=== PATIENT | male | born 1955 | race Caucasian/White ===

== ENCOUNTER 2017-07-01 00:33 | Inpatient (IN) | payer OTHER ==
[2017-07-01] MEDS: CEFEPIME 2GM/50 ML (PMX) 50 ML IVPB (03:34)
[2017-07-01] MEDS: morphine 4 MG/ML VIAL IV ×5 (03:34→21:21)
[2017-07-01] MEDS: ONDANSETRON 4 MG INJ IV ×2 (03:34→10:25)
[2017-07-01] MEDS: SODIUM CHLORIDE 0.9% 1L BAG IV* (03:34)
[2017-07-01 03:41] LABS: ADD MAN DIFF? NO
[2017-07-01 03:57] LABS: ADD UMIC NO; UR ASCORBIC ACID NEGATIVE (NEGATIVE); UR BILIRUBIN (Dip) NEGATIVE (NEGATIVE); UR BLOOD (Dip) NEGATIVE (NEGATIVE); UR CLARITY CLEAR (CLEAR); UR COLOR YELLOW (YELLOW); UR GLUCOSE (Dip) NEGATIVE (NEGATIVE); UR KETONES (Dip) NEGATIVE (NEGATIVE); UR LEUKOCYTE ESTERASE (Dip) NEGATIVE Leu/ul (NEGATIVE); UR NITRITE (Dip) NEGATIVE (NEGATIVE); UR SPECIFIC GRAVITY (Dip) 1.023 (1.003-1.030); UR TOTAL PROTEIN (Dip) NEGATIVE (NEGATIVE); UR UROBILINOGEN (Dip) NEGATIVE (NEGATIVE)
[2017-07-01 03:59] LABS: ALANINE AMINOTRANSFERASE 29 IU/L (13-69); ALBUMIN 4.2 g/dl (3.3-4.9); ALKALINE PHOSPHATASE 76 IU/L (42-121); ANION GAP 16 (8-16); ASPARTATE AMINO TRANSFERASE 21 IU/L (15-46); BILIRUBIN,INDIRECT 0.3 mg/dl (0-1.1); BILIRUBIN,TOTAL 0.3 mg/dl (0.2-1.3); BLOOD UREA NITROGEN 15 mg/dl (7-20); CALCIUM 9.2 mg/dl (8.4-10.2); CARBON DIOXIDE 22 mmol/L (21-31); CHLORIDE 103 mmol/L (97-110); CREATININE 0.94 mg/dl (0.61-1.24); GLUCOSE 139 mg/dl (70-220); LIPASE 93 U/L (23-300); POTASSIUM 4.3 mmol/L (3.5-5.1); SODIUM 137 mmol/L (135-144)
[2017-07-01 04:05] LABS: PARTIAL THROMBOPLASTIN TIME 30.7 Sec (25.0-35.0)
[2017-07-01 04:07] LABS: WHITE BLOOD COUNT 17.8 10^3/ul (4.8-10.8)
[2017-07-01 04:07] LABS: ABNORMAL IP MESSAGE 1; BASOPHILS % 0.2 % (0.0-2.0); HEMATOCRIT 43.4 % (42.0-52.0); HEMOGLOBIN 15.2 g/dl (14.0-18.0); LYMPHOCYTES # 1.1 10^3/ul (0.8-2.9); LYMPHOCYTES % 6.1 % (15.0-51.0); MEAN CORPUSCULAR VOLUME 91.4 fl (82.0-101.0); MEAN PLATELET VOLUME 12.9 fl (7.4-10.4); MONOCYTE # 1.9 10^3/ul (0.3-0.9); MONOCYTES % 10.5 % (0.0-11.0); NEUTROPHIL # 14.7 10^3/ul (1.6-7.5); NEUTROPHILS % 82.8 % (39.0-77.0); PLATELET COUNT 160 10^3/UL (140-415); POSITIVE DIFF @See below; RED BLOOD COUNT 4.75 10^6/ul (4.70-6.10); RED CELL DISTRIBUTION WIDTH 13.3 % (11.5-14.5)
[2017-07-01 04:09] LABS: INR 0.97
[2017-07-01 04:14] LABS: TROPONIN-I < 0.012 ng/ml (0.00-0.12)
[2017-07-01 04:16] LABS: LACTIC ACID 2.1 mmol/L (0.5-2.0)
[2017-07-01] MEDS: VANCOMYCIN 1 GM (PMX) 250 ML IVPB ×2 (04:35→18:31)
[2017-07-01] MEDS: morphine 10 MG INJ IV (05:58)
[2017-07-01 08:40] LABS: INR 1.08; PARTIAL THROMBOPLASTIN TIME 31.9 Sec (25.0-35.0); PROTIME 14.1 Sec (11.9-14.9); PT RATIO 1.1
[2017-07-01 09:05] LABS: LACTIC ACID 1.8 mmol/L (0.5-2.0)
[2017-07-01] MEDS ORDERED: ACETAMINOPHEN 325 MG TAB PO ×2 (10:30→13:30)
[2017-07-01] MEDS ORDERED: ONDANSETRON 4 MG INJ IV ×2 (10:30→13:30)
[2017-07-01] MEDS: SOD CHLORIDE 0.9% 1,000 ML IV ×2 (10:46→13:26)
[2017-07-01] MEDS ORDERED: HYDROCODONE/APAP (5/325) TAB PO ×2 (13:30)
[2017-07-01] MEDS ORDERED: ACETAMINOPHEN 650 MG SUPP PR (13:30)
[2017-07-01] MEDS ORDERED: VANCOMYCIN IV PER PHARMACY XX (13:30)
[2017-07-01] MEDS ORDERED: NACL 0.9% 3 ML SYG IV (13:30)
[2017-07-01] MEDS ORDERED: DOCUSATE SODIUM 100 MG CAP PO (13:30)
[2017-07-01] MEDS ORDERED: GLUCOSE GEL 15 GRAM TUBE BUCCAL (14:00)
[2017-07-01] MEDS ORDERED: GLUCAGON 1 MG INJ IM (14:00)
[2017-07-01] MEDS ORDERED: GLUCOSE GEL 15 GRAM TUBE PO ×2 (14:00)
[2017-07-01] MEDS ORDERED: DEXTROSE 50% 50 ML SYRINGE IV ×2 (14:00)
[2017-07-01 14:58] LABS: LACTIC ACID 1.1 mmol/L (0.5-2.0)
[2017-07-01] MEDS: PIPER-TAZO 3.375 GM IV (PMX) 50 ML IVPB (17:55)
[2017-07-01] MEDS: INSULIN ASPART [NOVOLOG] 3 ML PEN SC ×2 (18:05→20:08)
[2017-07-01] MEDS: ATORVASTATIN 20 MG TAB PO (20:08)
[2017-07-02] MEDS: PIPER-TAZO 3.375 GM IV (PMX) 50 ML IVPB ×5 (00:21→23:42)
[2017-07-02] MEDS: SOD CHLORIDE 0.9% 1,000 ML IV ×3 (01:56→23:43)
[2017-07-02] MEDS: ACCU-CHEK XX (02:33)
[2017-07-02] MEDS ORDERED: PANTOPRAZOLE 40 MG INJ (04:49)
[2017-07-02] MEDS: PANTOPRAZOLE 40 MG INJ IV (05:26)
[2017-07-02] MEDS: morphine 4 MG/ML VIAL IV ×6 (05:27→23:02)
[2017-07-02 06:10] LABS: ADD MAN DIFF? NO
[2017-07-02] MEDS: VANCOMYCIN 1 GM (PMX) 250 ML IVPB (06:11)
[2017-07-02 06:15] LABS: ABNORMAL IP MESSAGE 1; BASOPHILS % 0.3 % (0.0-2.0); EOSINOPHILS # 0.1 10^3/ul (0.0-0.5); EOSINOPHILS % 0.5 % (0.0-7.0); HEMATOCRIT 38.6 % (42.0-52.0); HEMOGLOBIN 13.4 g/dl (14.0-18.0); LYMPHOCYTES # 1.2 10^3/ul (0.8-2.9); LYMPHOCYTES % 7.5 % (15.0-51.0); MEAN CORPUSCULAR HEMOGLOBIN 32.3 pg (29.0-33.0); MEAN CORPUSCULAR HGB CONC 34.7 g/dl (32.0-37.0); MEAN PLATELET VOLUME 12.1 fl (7.4-10.4); MONOCYTE # 1.7 10^3/ul (0.3-0.9); MONOCYTES % 10.8 % (0.0-11.0); NEUTROPHIL # 12.8 10^3/ul (1.6-7.5); NEUTROPHILS % 80.3 % (39.0-77.0); PLATELET COUNT 132 10^3/UL (140-415); POSITIVE DIFF @See below; RED BLOOD COUNT 4.15 10^6/ul (4.70-6.10); RED CELL DISTRIBUTION WIDTH 13.2 % (11.5-14.5)
[2017-07-02 06:15] LABS: WHITE BLOOD COUNT 15.9 10^3/ul (4.8-10.8)
[2017-07-02 07:02] LABS: ALANINE AMINOTRANSFERASE 25 IU/L (13-69); ALBUMIN 2.9 g/dl (3.3-4.9); ALBUMIN/GLOBULIN RATIO 1.03; ALKALINE PHOSPHATASE 54 IU/L (42-121); ANION GAP 12 (8-16); ASPARTATE AMINO TRANSFERASE 13 IU/L (15-46); BILIRUBIN,INDIRECT 0.8 mg/dl (0-1.1); BILIRUBIN,TOTAL 0.8 mg/dl (0.2-1.3); BLOOD UREA NITROGEN 11 mg/dl (7-20); CALCIUM 8.5 mg/dl (8.4-10.2); CARBON DIOXIDE 25 mmol/L (21-31); CHLORIDE 104 mmol/L (97-110); CHOLESTEROL 127 mg/dl (100-200); CREATININE 0.84 mg/dl (0.61-1.24); GLUCOSE 110 mg/dl (70-220); HDL CHOLESTEROL 31 mg/dl (30-78); LDL CHOLESTEROL,CALCULATED 75 mg/dl; MAGNESIUM 1.8 mg/dl (1.7-2.5); SODIUM 137 mmol/L (135-144); TOTAL PROTEIN 5.7 g/dl (6.1-8.1); TRIGLYCERIDES 105 mg/dl (0-149)
[2017-07-02 07:16] LABS: FREE THYROXINE INDEX (Calc) 2.61 ug/ml (0.65-3.89); T3 UPTAKE 39.5 % (23.5-40.5); T4 (THYROXINE) 6.6 ug/dl (5.5-11.0)
[2017-07-02 07:29] LABS: THYROID STIMULATING HORMONE 0.499 MIU/L (0.465-4.680)
[2017-07-02] MEDS: INSULIN ASPART [NOVOLOG] 3 ML PEN SC ×4 (08:00→20:12)
[2017-07-02] MEDS: CHOLECALCIFEROL 1,000 UNIT TAB PO (08:59)
[2017-07-02 09:44] LABS: HEMOGLOBIN A1C 5.9 % (0-5.9)
[2017-07-02] MEDS ORDERED: VANCOMYCIN 1 GM in SOD CHLORIDE 0.45% 250 ML IVPB (18:00)
[2017-07-02] MEDS: VANCOMYCIN 1 GM in SODIUM CHLORIDE 0.45 % 250 ML IVPB (18:24)
[2017-07-02] MEDS: ATORVASTATIN 20 MG TAB PO (20:12)
[2017-07-03] MEDS: HYDROmorphONE 0.5 MG/0.5 ML SYG IV ×3 (01:11→09:35)
[2017-07-03] MEDS: ACCU-CHEK XX (02:00)
[2017-07-03] MEDS: PANTOPRAZOLE 40 MG INJ IV (05:30)
[2017-07-03] MEDS: PIPER-TAZO 3.375 GM IV (PMX) 50 ML IVPB ×3 (05:30→19:38)
[2017-07-03 06:30] LABS: ADD MAN DIFF? NO
[2017-07-03 06:37] LABS: WHITE BLOOD COUNT 11.6 10^3/ul (4.8-10.8)
[2017-07-03 06:37] LABS: BASOPHILS % 0.2 % (0.0-2.0); EOSINOPHILS # 0.2 10^3/ul (0.0-0.5); EOSINOPHILS % 1.4 % (0.0-7.0); HEMATOCRIT 37.8 % (42.0-52.0); HEMOGLOBIN 12.6 g/dl (14.0-18.0); LYMPHOCYTES # 1.3 10^3/ul (0.8-2.9); LYMPHOCYTES % 11.3 % (15.0-51.0); MEAN CORPUSCULAR HGB CONC 33.3 g/dl (32.0-37.0); MEAN CORPUSCULAR VOLUME 93.1 fl (82.0-101.0); MEAN PLATELET VOLUME 12.1 fl (7.4-10.4); MONOCYTES % 8.4 % (0.0-11.0); PLATELET COUNT 143 10^3/UL (140-415); RED BLOOD COUNT 4.06 10^6/ul (4.70-6.10); RED CELL DISTRIBUTION WIDTH 12.6 % (11.5-14.5)
[2017-07-03 07:41] LABS: VANCOMYCIN,TROUGH 8.3 ug/ml (10.0-20.0)
[2017-07-03] MEDS: INSULIN ASPART [NOVOLOG] 3 ML PEN SC ×4 (08:00→21:00)
[2017-07-03 08:35] LABS: ANION GAP 11 (8-16); BLOOD UREA NITROGEN 12 mg/dl (7-20); CARBON DIOXIDE 28 mmol/L (21-31); CHLORIDE 104 mmol/L (97-110); CREATININE 0.97 mg/dl (0.61-1.24); GLUCOSE 105 mg/dl (70-220); POTASSIUM 4.4 mmol/L (3.5-5.1); SODIUM 139 mmol/L (135-144)
[2017-07-03] MEDS: CHOLECALCIFEROL 1,000 UNIT TAB PO (09:00)
[2017-07-03] MEDS: VANCOMYCIN 1 GM in SODIUM CHLORIDE 0.45 % 250 ML IVPB (09:07)
[2017-07-03 09:26] LABS: MAGNESIUM 2.2 mg/dl (1.7-2.5)
[2017-07-03 09:26] LABS: PHOSPHORUS 3.1 mg/dl (2.5-4.9)
[2017-07-03] MEDS: SOD CHLORIDE 0.9% 500 ML (10:58)
[2017-07-03] MEDS: LIDOCAINE 1% (MDV) 20 ML INJ (11:30)
[2017-07-03] MEDS: MIDAZOLAM 1 MG/ML 2 ML INJ (11:31)
[2017-07-03] MEDS: FENTAnyl 50 MCG/ML VIAL (11:35)
[2017-07-03] MEDS: morphine 2 MG INJ IV ×2 (12:55→20:48)
[2017-07-03] MEDS: morphine 4 MG/ML VIAL IV ×3 (14:44→23:58)
[2017-07-03] MEDS: VANCOMYCIN 750 MG in DEXTROSE 5% 150 ML IVPB (17:04)
[2017-07-03] MEDS: SOD CHLORIDE 0.9% 1,000 ML IV (17:05)
[2017-07-03] MEDS: ATORVASTATIN 20 MG TAB PO (21:01)
[2017-07-04] MEDS: VANCOMYCIN 750 MG in DEXTROSE 5% 150 ML IVPB ×3 (00:07→15:02)
[2017-07-04] MEDS: PIPER-TAZO 3.375 GM IV (PMX) 50 ML IVPB ×4 (00:07→17:12)
[2017-07-04] MEDS: ACCU-CHEK XX (00:59)
[2017-07-04] MEDS: morphine 4 MG/ML VIAL IV ×6 (03:37→20:28)
[2017-07-04] MEDS: SOD CHLORIDE 0.9% 1,000 ML IV ×2 (03:56→15:02)
[2017-07-04] MEDS: PANTOPRAZOLE 40 MG INJ IV (05:27)
[2017-07-04 06:11] LABS: ADD MAN DIFF? NO
[2017-07-04 06:15] LABS: WHITE BLOOD COUNT 7.2 10^3/ul (4.8-10.8)
[2017-07-04 06:15] LABS: BASOPHILS % 0.3 % (0.0-2.0); EOSINOPHILS # 0.2 10^3/ul (0.0-0.5); EOSINOPHILS % 2.1 % (0.0-7.0); HEMATOCRIT 35.8 % (42.0-52.0); HEMOGLOBIN 12.6 g/dl (14.0-18.0); LYMPHOCYTES # 1.5 10^3/ul (0.8-2.9); LYMPHOCYTES % 21.2 % (15.0-51.0); MEAN CORPUSCULAR HEMOGLOBIN 32.2 pg (29.0-33.0); MEAN CORPUSCULAR HGB CONC 35.2 g/dl (32.0-37.0); MEAN CORPUSCULAR VOLUME 91.6 fl (82.0-101.0); MONOCYTE # 0.7 10^3/ul (0.3-0.9); MONOCYTES % 9.6 % (0.0-11.0); NEUTROPHIL # 4.8 10^3/ul (1.6-7.5); NEUTROPHILS % 66.2 % (39.0-77.0); PLATELET COUNT 168 10^3/UL (140-415); RED BLOOD COUNT 3.91 10^6/ul (4.70-6.10)
[2017-07-04 06:49] LABS: ANION GAP 13 (8-16); BLOOD UREA NITROGEN 13 mg/dl (7-20); CALCIUM 8.7 mg/dl (8.4-10.2); CARBON DIOXIDE 24 mmol/L (21-31); CHLORIDE 107 mmol/L (97-110); CREATININE 0.86 mg/dl (0.61-1.24); GLUCOSE 102 mg/dl (70-220); POTASSIUM 4.4 mmol/L (3.5-5.1); SODIUM 140 mmol/L (135-144)
[2017-07-04 06:59] LABS: MAGNESIUM 2.2 mg/dl (1.7-2.5)
[2017-07-04] MEDS: INSULIN ASPART [NOVOLOG] 3 ML PEN SC ×4 (08:00→20:38)
[2017-07-04] MEDS: CHOLECALCIFEROL 1,000 UNIT TAB PO (09:32)
[2017-07-04] MEDS: POLYETHYLENE GLYCOL 17 GM PACKET PO ×2 (12:20→20:33)
[2017-07-04] MEDS: BISACODYL (EC) 5 MG TAB PO (12:34)
[2017-07-04] MEDS: ATORVASTATIN 20 MG TAB PO (20:33)
[2017-07-05] MEDS: morphine 4 MG/ML VIAL IV ×7 (00:23→22:15)
[2017-07-05] MEDS: PIPER-TAZO 3.375 GM IV (PMX) 50 ML IVPB ×5 (00:23→23:54)
[2017-07-05] MEDS: ACCU-CHEK XX (01:12)
[2017-07-05] MEDS: VANCOMYCIN 1 GM 250 ML IVPB ×2 (03:21→15:45)
[2017-07-05] MEDS: SOD CHLORIDE 0.9% 1,000 ML IV ×2 (03:26→17:31)
[2017-07-05] MEDS: MAGNESIUM HYDROXIDE 30ML CUP PO (03:26)
[2017-07-05] MEDS: PANTOPRAZOLE 40 MG INJ IV (05:28)
[2017-07-05] MEDS: INSULIN ASPART [NOVOLOG] 3 ML PEN SC ×4 (08:00→20:09)
[2017-07-05] MEDS: CHOLECALCIFEROL 1,000 UNIT TAB PO (08:44)
[2017-07-05] MEDS: POLYETHYLENE GLYCOL 17 GM PACKET PO ×2 (08:44→20:09)
[2017-07-05] MEDS: ATORVASTATIN 20 MG TAB PO (20:09)
[2017-07-05] MEDS: BISACODYL 10 MG SUPP PR (22:21)
[2017-07-05 23:46] LABS: FLUID AMYLASE 3328 U/L; FLUID TYPE PERITONEAL FLUID
[2017-07-06] MEDS: ACCU-CHEK XX (02:00)
[2017-07-06] MEDS: morphine 4 MG/ML VIAL IV (02:02)
[2017-07-06] MEDS: VANCOMYCIN 1 GM 250 ML IVPB ×2 (03:05→15:41)
[2017-07-06] MEDS: HYDROmorphONE 0.5 MG/0.5 ML SYG IV ×4 (04:31→17:29)
[2017-07-06] MEDS: PANTOPRAZOLE 40 MG INJ IV (05:36)
[2017-07-06] MEDS: PIPER-TAZO 3.375 GM IV (PMX) 50 ML IVPB ×4 (05:36→23:47)
[2017-07-06 07:24] LABS: BLOOD UREA NITROGEN 13 mg/dl (7-20)
[2017-07-06 07:24] LABS: CREATININE 0.98 mg/dl (0.61-1.24)
[2017-07-06] MEDS: SOD CHLORIDE 0.9% 1,000 ML IV ×3 (07:30→18:03)
[2017-07-06] MEDS: INSULIN ASPART [NOVOLOG] 3 ML PEN SC ×4 (08:00→21:00)
[2017-07-06] MEDS: POLYETHYLENE GLYCOL 17 GM PACKET PO ×2 (08:32→21:00)
[2017-07-06] MEDS: CHOLECALCIFEROL 1,000 UNIT TAB PO (08:34)
[2017-07-06 14:42] LABS: AMYLASE 85 U/L (11-123)
[2017-07-06 14:49] LABS: VANCOMYCIN,TROUGH 12.4 ug/ml (10.0-20.0)
[2017-07-06] MEDS: ATORVASTATIN 20 MG TAB PO (21:32)
[2017-07-06] MEDS: LORAZEPAM 2 MG INJ IV (21:35)
[2017-07-07] MEDS: ACCU-CHEK XX (02:00)
[2017-07-07] MEDS: VANCOMYCIN 1 GM 250 ML IVPB ×2 (03:59→15:35)
[2017-07-07] MEDS: PANTOPRAZOLE 40 MG INJ IV (06:18)
[2017-07-07] MEDS: PIPER-TAZO 3.375 GM IV (PMX) 50 ML IVPB ×3 (06:19→18:09)
[2017-07-07] MEDS: INSULIN ASPART [NOVOLOG] 3 ML PEN SC ×4 (07:56→20:09)
[2017-07-07] MEDS: SOD CHLORIDE 0.9% 1,000 ML IV ×3 (07:56→19:26)
[2017-07-07] MEDS: CHOLECALCIFEROL 1,000 UNIT TAB PO (08:56)
[2017-07-07] MEDS: POLYETHYLENE GLYCOL 17 GM PACKET PO ×2 (08:57→20:10)
[2017-07-07] MEDS: HYDROmorphONE 0.5 MG/0.5 ML SYG IV ×3 (10:54→20:10)
[2017-07-07] MEDS: ATORVASTATIN 20 MG TAB PO (20:10)
[2017-07-08] MEDS: PIPER-TAZO 3.375 GM IV (PMX) 50 ML IVPB ×4 (00:15→17:09)
[2017-07-08] MEDS: HYDROmorphONE 0.5 MG/0.5 ML SYG IV ×5 (00:17→17:10)
[2017-07-08] MEDS: ACCU-CHEK XX (01:14)
[2017-07-08] MEDS: VANCOMYCIN 1 GM 250 ML IVPB ×2 (02:55→15:08)
[2017-07-08] MEDS: PANTOPRAZOLE 40 MG INJ IV (05:16)
[2017-07-08] MEDS: INSULIN ASPART [NOVOLOG] 3 ML PEN SC ×4 (08:00→20:08)
[2017-07-08] MEDS: CHOLECALCIFEROL 1,000 UNIT TAB PO (08:02)
[2017-07-08] MEDS: POLYETHYLENE GLYCOL 17 GM PACKET PO ×2 (08:04→20:09)
[2017-07-08] MEDS: SOD CHLORIDE 0.9% 1,000 ML IV ×2 (08:05→20:26)
[2017-07-08] MEDS: ATORVASTATIN 20 MG TAB PO (20:08)
[2017-07-08] MEDS: SOD CHLORIDE 0.9% 500 ML IV (20:11)
[2017-07-08] MEDS: ACETAMINOPHEN 1000 MG/100 ML IVPB IV (22:45)
[2017-07-09] MEDS: PIPER-TAZO 3.375 GM IV (PMX) 50 ML IVPB ×5 (00:07→23:43)
[2017-07-09] MEDS: ACCU-CHEK XX (01:09)
[2017-07-09] MEDS: VANCOMYCIN 1 GM 250 ML IVPB ×2 (03:09→15:18)
[2017-07-09] MEDS: PANTOPRAZOLE 40 MG INJ IV (05:27)
[2017-07-09] MEDS: SOD CHLORIDE 0.9% 1,000 ML IV ×3 (06:27→22:05)
[2017-07-09] MEDS: INSULIN ASPART [NOVOLOG] 3 ML PEN SC ×4 (08:00→20:08)
[2017-07-09] MEDS: HYDROmorphONE 0.5 MG/0.5 ML SYG IV ×3 (08:21→22:05)
[2017-07-09] MEDS: CHOLECALCIFEROL 1,000 UNIT TAB PO (08:21)
[2017-07-09] MEDS: POLYETHYLENE GLYCOL 17 GM PACKET PO ×2 (08:21→20:09)
[2017-07-09] MEDS: LORAZEPAM 1 MG TAB PO ×2 (11:52→20:15)
[2017-07-09 12:23] LABS: ADD MAN DIFF? NO
[2017-07-09 12:44] LABS: WHITE BLOOD COUNT 8.1 10^3/ul (4.8-10.8)
[2017-07-09 12:44] LABS: BASOPHILS % 0.5 % (0.0-2.0); EOSINOPHILS # 0.2 10^3/ul (0.0-0.5); HEMATOCRIT 39.9 % (42.0-52.0); HEMOGLOBIN 13.9 g/dl (14.0-18.0); LYMPHOCYTES # 1.6 10^3/ul (0.8-2.9); LYMPHOCYTES % 19.7 % (15.0-51.0); MEAN CORPUSCULAR HEMOGLOBIN 31.8 pg (29.0-33.0); MEAN CORPUSCULAR HGB CONC 34.8 g/dl (32.0-37.0); MEAN CORPUSCULAR VOLUME 91.3 fl (82.0-101.0); MEAN PLATELET VOLUME 11.6 fl (7.4-10.4); MONOCYTE # 0.5 10^3/ul (0.3-0.9); MONOCYTES % 6.3 % (0.0-11.0); NEUTROPHIL # 5.6 10^3/ul (1.6-7.5); NEUTROPHILS % 69.4 % (39.0-77.0); PLATELET COUNT 194 10^3/UL (140-415); RED BLOOD COUNT 4.37 10^6/ul (4.70-6.10); RED CELL DISTRIBUTION WIDTH 12.8 % (11.5-14.5)
[2017-07-09 12:49] LABS: PHOSPHORUS 3.2 mg/dl (2.5-4.9)
[2017-07-09 12:51] LABS: ANION GAP 15 (8-16); BLOOD UREA NITROGEN 12 mg/dl (7-20); CARBON DIOXIDE 25 mmol/L (21-31); CHLORIDE 106 mmol/L (97-110); CREATININE 0.91 mg/dl (0.61-1.24); GLUCOSE 130 mg/dl (70-220); POTASSIUM 4.1 mmol/L (3.5-5.1); SODIUM 142 mmol/L (135-144)
[2017-07-09] MEDS: ATORVASTATIN 20 MG TAB PO (20:09)
[2017-07-10] MEDS: ACCU-CHEK XX (02:00)
[2017-07-10] MEDS: VANCOMYCIN 1 GM 250 ML IVPB ×2 (03:45→14:30)
[2017-07-10] MEDS: PIPER-TAZO 3.375 GM IV (PMX) 50 ML IVPB ×2 (05:52→11:59)
[2017-07-10] MEDS: PANTOPRAZOLE 40 MG INJ IV (05:52)
[2017-07-10] MEDS: INSULIN ASPART [NOVOLOG] 3 ML PEN SC ×4 (08:00→21:00)
[2017-07-10] MEDS: POLYETHYLENE GLYCOL 17 GM PACKET PO ×2 (08:30→20:19)
[2017-07-10] MEDS: CHOLECALCIFEROL 1,000 UNIT TAB PO (08:30)
[2017-07-10] MEDS: HYDROmorphONE 0.5 MG/0.5 ML SYG IV (12:06)
[2017-07-10] MEDS: LEVOFLOXACIN 750 MG TABLET PO (16:29)
[2017-07-10] MEDS: SOD CHLORIDE 0.9% 1,000 ML IV (16:30)
[2017-07-10] MEDS: HYDROmorphONE 2 MG TAB PO ×2 (16:33→21:16)
[2017-07-10] MEDS: ATORVASTATIN 20 MG TAB PO (20:15)
[2017-07-11] MEDS: ACCU-CHEK XX ×2 (02:00→20:15)
[2017-07-11] MEDS: PANTOPRAZOLE 40 MG INJ IV (05:33)
[2017-07-11] MEDS: LEVOFLOXACIN 750 MG TABLET PO (05:33)
[2017-07-11] MEDS: SOD CHLORIDE 0.9% 1,000 ML IV ×4 (06:27→21:08)
[2017-07-11] MEDS: INSULIN ASPART [NOVOLOG] 3 ML PEN SC ×4 (08:00→20:14)
[2017-07-11] MEDS: POLYETHYLENE GLYCOL 17 GM PACKET PO ×2 (08:40→20:11)
[2017-07-11] MEDS: CHOLECALCIFEROL 1,000 UNIT TAB PO (08:40)
[2017-07-11] MEDS: LORAZEPAM 1 MG TAB PO ×2 (08:41→20:15)
[2017-07-11] MEDS: ATORVASTATIN 20 MG TAB PO (20:15)
[2017-07-11] MEDS: HYDROmorphONE 2 MG TAB PO (22:16)
[2017-07-12] MEDS: LEVOFLOXACIN 750 MG TABLET PO (05:33)
[2017-07-12] MEDS: PANTOPRAZOLE 40 MG INJ IV (05:33)
[2017-07-12] MEDS: INSULIN ASPART [NOVOLOG] 3 ML PEN SC ×4 (08:00→21:00)
[2017-07-12] MEDS: POLYETHYLENE GLYCOL 17 GM PACKET PO ×2 (08:26→21:24)
[2017-07-12] MEDS: CHOLECALCIFEROL 1,000 UNIT TAB PO (08:42)
[2017-07-12] MEDS: SOD CHLORIDE 0.9% 1,000 ML IV (10:55)
[2017-07-12] MEDS: CEFTRIAXONE 1 GM/50 ML (PMX) 50 ML IVPB (16:29)
[2017-07-12] MEDS: LORAZEPAM 1 MG TAB PO (18:04)
[2017-07-12] MEDS: ATORVASTATIN 20 MG TAB PO (21:24)
[2017-07-13] MEDS: SOD CHLORIDE 0.9% 1,000 ML IV ×2 (00:26→06:03)
[2017-07-13] MEDS: ACCU-CHEK XX (02:00)
[2017-07-13] MEDS: LORAZEPAM 1 MG TAB PO (02:04)
[2017-07-13] MEDS: PANTOPRAZOLE 40 MG INJ IV (06:01)
[2017-07-13] MEDS: INSULIN ASPART [NOVOLOG] 3 ML PEN SC ×2 (07:49→11:58)
[2017-07-13] MEDS: CHOLECALCIFEROL 1,000 UNIT TAB PO (09:11)
[2017-07-13] MEDS: POLYETHYLENE GLYCOL 17 GM PACKET PO (09:12)
[2017-07-13] MEDS: CEFTRIAXONE 1 GM/50 ML (PMX) 50 ML IVPB (14:49)
== END 2017-07-13 16:40 | disposition home or self-care (01) | DRG 871 ==
LOC: E/R 00:33 → PP2 10:20
PROC: 0W9H30Z Drainage of Retroperitoneum with Drainage Device, Percutaneous Approach (ICD-10-PCS; principal; 2017-07-03)
DX: A41.9 Sepsis, unspecified organism (principal); K68.19 Other retroperitoneal abscess; E66.9 Obesity, unspecified; E11.9 Type 2 diabetes mellitus without complications; E78.5 Hyperlipidemia, unspecified; F41.9 Anxiety disorder, unspecified; F17.210 Nicotine dependence, cigarettes, uncomplicated; B96.1 Klebsiella pneumoniae [K. pneumoniae] as the cause of diseases classified elsewhere; Z68.32 Body mass index [BMI] 32.0-32.9, adult; Z90.5 Acquired absence of kidney; Z85.528 Personal history of other malignant neoplasm of kidney
CPT/HCPCS: 36415; 71010; 74176; 77012; 80048; 80053; 80061; 80202; 81003; 82150; 82565; 82962; 83036; 83605; 83690; 83735; 84100; 84436; 84443; 84479; 84484; 84520; 85025; 85610; 85730; 87040; 87070; 87086; 93005; 96374; 96375; 96376; 99291-25

== ENCOUNTER 2018-06-28 09:15 | Day surgery (SDC) | payer OTHER ==
[2018-06-28] MEDS ORDERED: PROPOFOL 40 ML (10:47)
[2018-06-28] MEDS ORDERED: LIDOCAINE 100 MG SYRINGE (10:47)
[2018-06-28] MEDS ORDERED: FENTAnyl 50 MCG/ML VIAL (10:48)
== END 2018-06-28 12:41 | disposition home or self-care (01) ==
LOC: GIL 09:15
DX: Z12.11 Encounter for screening for malignant neoplasm of colon (principal); K64.8 Other hemorrhoids; K57.30 Diverticulosis of large intestine without perforation or abscess without bleeding; E11.9 Type 2 diabetes mellitus without complications; E78.00 Pure hypercholesterolemia, unspecified; E66.9 Obesity, unspecified; Z68.34 Body mass index [BMI] 34.0-34.9, adult
CPT/HCPCS: 45378